=== PATIENT | female | born 1950 | race African-American/Black ===

== ENCOUNTER 2024-05-07 10:14 | Outpatient (CLI) | payer MEDICARE | END 2024-05-07 10:15 | disposition home or self-care (01) | LOC: BICMAMMO 10:14 | PROVIDERS: ATTEND Family Medicine | DX: Z13.820 Encounter for screening for osteoporosis (principal); M81.0 Age-related osteoporosis without current pathological fracture; M85.851 Other specified disorders of bone density and structure, right thigh; M85.852 Other specified disorders of bone density and structure, left thigh | CPT/HCPCS: 77080 ==

== ENCOUNTER 2024-09-26 02:49 | Inpatient (IN) | payer MEDICARE ==
[2024-09-26 04:58] VITALS: BMI 21.7
[2024-09-26] MEDS ORDERED: Acetaminophen 650 MG Suppository PR PRN (05:26)
[2024-09-26] MEDS ORDERED: Ondansetron ODT 4 MG TAB PO PRN (05:26)
[2024-09-26] MEDS ORDERED: Ondansetron PF 4 MG/2 ML Vial IVP PRN (05:26)
[2024-09-26 05:53] LABS: #Basophils 0.03 10x3/uL (0.0-0.2); #Eosinophils Less than 0.03 10x3/uL (0.0-0.7); %Basophils 0.4 % (0.0-1.0); %Eosinophils 0.3 % (0.0-10.0); %Lymphocytes 16.7 % (21.0-51.0); %Monocytes 6.9 % (0.0-10.0); %Neutrophils 75.4 % (42.0-75.0); Hematocrit 31.6 % (36.0-47.0); Hemoglobin 10.7 g/dL (12.0-16.0); Mean Corpuscular HGB CONC 33.9 g/dL (32.0-36.0); Mean Corpuscular Hemoglobin 29.6 pg (27.0-31.0); Mean Corpuscular Volume 87.5 fL (78.0-98.0); Mean Platelet Volume 9.2 fL (7.4-10.4); Platelet Count 325 10x3/uL (130-400); RBC Distribution Width 13.9 % (11.5-14.5); Red Blood Cell (RBC) Count 3.61 mill/uL (4.20-5.40)
[2024-09-26 06:19] LABS: ALT (SGPT) 8 U/L (8-55); AST (SGOT) 15 U/L (5-34); Albumin 3.7 g/dL (3.4-4.8); Alkaline Phosphatase 65 U/L (40-110); Anion Gap 16 mmol/L (10-20); BUN (Urea Nitrogen) 11 mg/dL (9.8-20.1); Calc. Creatinine Clearance 44 mL/min (70-130); Calcium 9.7 mg/dL (7.8-10.44); Carbon Dioxide 26 mmol/L (23-31); Chloride 97 mmol/L (98-107); Estimated GFR 49; Globulin 3.7 g/dL (2.4-3.5); Glucose 116 mg/dL (83-110); Potassium 4.4 mmol/L (3.5-5.1); Protein, Total 7.4 g/dL (5.8-8.1); Sodium 135 mmol/L (136-145)
[2024-09-26] MEDS: Acetaminophen 325 MG TAB PO SCH (06:25)
[2024-09-26 06:29] LABS: Bilirubin, Total 0.3 mg/dL (0.2-1.2)
[2024-09-26] MEDS ORDERED: Glucagon 1 MG/ML KIT IM PRN (09:00)
[2024-09-26] MEDS ORDERED: Dextrose 5% in Water 1,000 ML IV PRN (09:00)
[2024-09-26] MEDS ORDERED: Famotidine/PF 20 mg/2ml Vial SLOW IVP SCH (09:00)
[2024-09-26] MEDS ORDERED: Insulin Lispro 100 UNIT/ML 10 ML VIAL SC PRN (09:00)
[2024-09-26] MEDS ORDERED: Dextrose 50% Abboject 50 ML SYRINGE SLOW IVP PRN (09:00)
[2024-09-26] MEDS ORDERED: Famotidine 20 MG TAB PO SCH (09:00)
[2024-09-26] MEDS: Furosemide 20 MG (2 mL) VIAL SLOW IVP SCH (09:53)
[2024-09-26] MEDS: Famotidine 20 MG TAB PO SCH (09:56)
[2024-09-26] MEDS: Hydrochlorothiazide 25 MG TAB PO SCH (09:57)
[2024-09-26] MEDS: Losartan 25 MG TAB PO SCH (10:00)
[2024-09-26] MEDS: Simvastatin 10 MG TAB PO SCH (20:08)
[2024-09-26] MEDS: Metoprolol Tartrate 25 MG TAB PO SCH (21:22)
[2024-09-27 05:09] LABS: #Basophils 0.03 10x3/uL (0.0-0.2); %Basophils 0.5 % (0.0-1.0); %Eosinophils 5.2 % (0.0-10.0); %Lymphocytes 32.3 % (21.0-51.0); %Monocytes 10.2 % (0.0-10.0); %Neutrophils 51.5 % (42.0-75.0); Hematocrit 32.1 % (36.0-47.0); Hemoglobin 10.9 g/dL (12.0-16.0); Mean Corpuscular Hemoglobin 29.5 pg (27.0-31.0); Mean Corpuscular Volume 86.8 fL (78.0-98.0); Mean Platelet Volume 9.3 fL (7.4-10.4); Platelet Count 362 10x3/uL (130-400); RBC Distribution Width 13.9 % (11.5-14.5)
[2024-09-27 05:26] LABS: Hemoglobin A1c 5.6 % (4.0-6.0)
[2024-09-27 05:27] LABS: Anion Gap 14 mmol/L (10-20); BUN (Urea Nitrogen) 11 mg/dL (9.8-20.1); Calc. Creatinine Clearance 55 mL/min (70-130); Calcium 9.6 mg/dL (7.8-10.44); Carbon Dioxide 25 mmol/L (23-31); Chloride 95 mmol/L (98-107); Estimated GFR 66; Glucose 109 mg/dL (83-110); Magnesium 1.9 mg/dL (1.6-2.6); Potassium 3.8 mmol/L (3.5-5.1); Sodium 130 mmol/L (136-145)
[2024-09-27] MEDS: Furosemide 20 MG (2 mL) VIAL SLOW IVP SCH (05:52)
[2024-09-27] MEDS ORDERED: Losartan 25 MG TAB PO SCH ×2 (09:00)
[2024-09-27] MEDS ORDERED: Hydrochlorothiazide 25 MG TAB PO SCH (09:00)
[2024-09-27] MEDS: Empagliflozin 10 MG TAB PO SCH (09:06)
[2024-09-27] MEDS: Sacubitril 24MG/Valsartan 26 MG TAB PO SCH (09:07)
[2024-09-27] MEDS ORDERED: Communication Order-Pharmacy FS SCH (17:00)
[2024-09-28 05:26] LABS: Anion Gap 15 mmol/L (10-20); BUN (Urea Nitrogen) 12 mg/dL (9.8-20.1); Calc. Creatinine Clearance 57 mL/min (70-130); Calcium 9.6 mg/dL (7.8-10.44); Carbon Dioxide 23 mmol/L (23-31); Chloride 98 mmol/L (98-107); Estimated GFR 69; Glucose 98 mg/dL (83-110); Potassium 3.9 mmol/L (3.5-5.1); Sodium 132 mmol/L (136-145)
[2024-09-28] MEDS ORDERED: Iopamidol 370 76% 100 ML VIAL ONE (13:00)
[2024-09-28] MEDS ORDERED: Verapamil 5 MG/2 ML VIAL ONE (14:09)
[2024-09-28] MEDS ORDERED: Heparin 10,000 UNITS/ 10 ML VIAL ONE (14:09)
[2024-09-28] MEDS ORDERED: Nitroglycerin 50 MG/250 ML BOT 250 ML ONE (14:09)
[2024-09-28] MEDS ORDERED: Midazolam HCl 2 mg/2 ml Vial ONE (14:09)
[2024-09-28] MEDS ORDERED: Nitroglycerin 0.4 MG TAB (25 Tab Bottle) SL PRN (15:40)
[2024-09-28] MEDS ORDERED: Sodium Chloride 0.9% 200 ML IV PRN (15:40)
[2024-09-28] MEDS ORDERED: Acetaminophen/Codeine 30-300mg Tablet PO PRN ×2 (15:40)
[2024-09-29 05:39] LABS: Anion Gap 13 mmol/L (10-20); BUN (Urea Nitrogen) 12 mg/dL (9.8-20.1); Calc. Creatinine Clearance 58 mL/min (70-130); Calcium 9.1 mg/dL (7.8-10.44); Carbon Dioxide 24 mmol/L (23-31); Chloride 102 mmol/L (98-107); Estimated GFR 71; Glucose 94 mg/dL (83-110); Potassium 3.9 mmol/L (3.5-5.1); Sodium 135 mmol/L (136-145)
[2024-09-29 12:08] VITALS: BP 110/72; TEMP 97.4
[2024-09-30] MEDS ORDERED: Furosemide 20 MG TAB PO SCH (09:00)
[2024-09-30] MEDS ORDERED: Sacubitril 24MG/Valsartan 26 MG TAB PO SCH (21:00)
== END 2024-09-29 13:25 | disposition home or self-care (01) | DRG 286 ==
LOC: OBS 04:43
PROVIDERS: ADMIT Student in an Organized Health Care Education/Training Program; ATTEND Family Medicine
PROC: 4A023N7 Measurement of Cardiac Sampling and Pressure, Left Heart, Percutaneous Approach (ICD-10-PCS; principal; 2024-09-28)
PROC: B2111ZZ Fluoroscopy of Multiple Coronary Arteries using Low Osmolar Contrast (ICD-10-PCS; 2024-09-28)
DX: I11.0 Hypertensive heart disease with heart failure (principal); I50.21 Acute systolic (congestive) heart failure; E87.1 Hypo-osmolality and hyponatremia; N17.9 Acute kidney failure, unspecified; Q21.12 Patent foramen ovale; E78.5 Hyperlipidemia, unspecified; K21.9 Gastro-esophageal reflux disease without esophagitis; E11.9 Type 2 diabetes mellitus without complications; Z79.84 Long term (current) use of oral hypoglycemic drugs; E87.6 Hypokalemia; E83.42 Hypomagnesemia; R00.0 Tachycardia, unspecified; Z79.899 Other long term (current) drug therapy; I25.10 Atherosclerotic heart disease of native coronary artery without angina pectoris; I42.8 Other cardiomyopathies
CPT/HCPCS: 36415; 36416; 80048; 83036; 83735; 83880; 84443; 85025; 93306; 93458; 93798; 94760; 99152; 99153; C1769; C1894; J1644; J1940; J2250; Q9967